=== PATIENT | male | born 1980 | race Caucasian/White ===

== ENCOUNTER 2019-01-01 17:05 | Emergency (ER) | payer MEDICAID ==
[2019-01-01] MEDS ORDERED: METHYLPREDNISOLONE 125 MG INJ IV ×2 (19:00→19:30)
[2019-01-01] MEDS ORDERED: KETOROLAC 30 MG INJ IV (19:00)
[2019-01-01] MEDS: CYCLOBENZAPRINE 10 MG TAB PO (19:23)
[2019-01-01] MEDS: KETOROLAC 30 MG INJ IM (19:23)
[2019-01-01] MEDS: predniSONE 20 MG TAB PO (19:23)
[2019-01-01] MEDS: HYDROCODONE/APAP (5/325) TAB PO (20:45)
== END 2019-01-01 20:53 | disposition home or self-care (01) ==
LOC: FTE 17:05
DX: M54.42 Lumbago with sciatica, left side (principal); M48.061 Spinal stenosis, lumbar region without neurogenic claudication
CPT/HCPCS: 72131; 96372; 99285-25